=== PATIENT | female | born 1990 | race Two or more races ===

== ENCOUNTER 2017-12-27 14:12 | Emergency (ER) | payer OTHER ==
--- NOTE | 2017-12-27 15:53 | ER Document Report ---
ED Respiratory Problem - General Chief Complaint: Sore Throat Stated Complaint: SORE THROAT, COUGH Time Seen by Provider: 12/27/17 15:11 Mode of Arrival: Ambulatory Information source: Patient TRAVEL OUTSIDE OF THE [place] IN LAST 30 DAYS: No - HPI Patient complains to provider of: Cough Notes: Patient is here with her daughter and herself with similar symptoms. They both have had cough, nasal congestion, runny nose for about a month now. Mom states that she now feels like her voice is getting hoarse and she has green colored drainage from her nose. She is also having some mild sinus pain. She complains of cough. No chest pain or shortness of breath. No fever. Immunizations are up-to-date. No chronic medical conditions. No daily medications. No rash. No abdominal pain. No nausea, vomiting, diarrhea. No dysuria or hematuria. No difficulty breathing or swallowing. - Related Data Allergies/Adverse Reactions: No Known Allergies Allergy (Verified 02/14/16 01:54) Past Medical History - Social History Smoking Status: Never Smoker Chew tobacco use (# tins/day): No Frequency of alcohol use: None Drug Abuse: None Family History: Reviewed & Not Pertinent Patient has suicidal ideation: No Patient has homicidal ideation: No Renal/ Medical History: Denies: Hx Peritoneal Dialysis - Immunizations Immunizations up to date: Yes Hx Diphtheria, Pertussis, Tetanus Vaccination: Yes Review of Systems - Review of Systems -: Yes All other systems reviewed and negative Physical Exam - Vital signs Vitals: Temp Pulse Resp BP Pulse Ox 99.3 F 79 16 111/61 98 12/27/17 14:39 12/27/17 14:39 12/27/17 14:39 12/27/17 14:39 12/27/17 14:39 - Notes Notes: GENERAL: alert, cooperative, nontoxic, no distress. HEAD: normocephalic, atraumatic EYES: conjunctiva pink without discharge, no external redness or swelling. EARS: no external swelling, no external redness, no mastoid redness, swelling, tenderness. Ear canals are clear without swelling or drainage. TMs pearly garcia , no redness, no bulging, normal landmarks, no perforation. NOSE: atraumatic, no external swelling. Purulent rhinorrhea noted. Inflammation of the nasal turbinates bilaterally. MOUTH/THROAT: mucous membranes moist and pink, posterior pharynx without erythema, swelling, exudate. No trismus or drooling. Slight hoarseness to the voice. NECK: soft, supple, full range of motion, no meningismus. CHEST: no distress, lungs clear and equal throughout. No wheezing, rales, rhonchi. CARDIAC: regular rate and rhythm, no murmur, normal capillary refill, normal pulses. No peripheral edema noted. BACK: full range of motion, no CVA tenderness. EXTREMITIES: full range of motion of all extremities. No redness, no swelling. NEURO: alert and oriented A&O3, no focal deficits, full range of motion of all extremities. PYSCH: appropriate mood, affect. Patient is cooperative. SKIN: pink, warm, dry, no rash. Course - Re-evaluation Re-evalutation: 12/27/17 16:23 Patient is nontoxic-appearing with stable vitals. She is here with complaints of cough, nasal congestion, sore throat for about a month now. Things seem to be getting somewhat worse. She is now having green nasal drainage and her voice is somewhat hoarse. She denies any severe sore throat. No difficulty breathing. She has stable vitals, no hypoxia, has a benign exam with no distress. She is noted to have purulent rhinorrhea with inflamed nasal turbinates. Patient has been sick for about a month now and things seem to be worsening. Chest x-ray shows no acute abnormality. On exam she clinically has sinusitis. She has not been on antibiotics in the last [address] her on amoxicillin for sinusitis. She will be given a shot of Decadron prior to discharge. She should follow-up if she is not better in the next 5-7 days, sooner for worsening symptoms, high fever, difficulty breathing or swallowing, or for any further concerns. The patient's emergency department workup and current diagnosis were explained to the patient and or family. Follow-up instructions were provided. Medications if prescribed were discussed. Instructions for when to return to the emergency department including specific worrisome symptoms were discussed with the patient and/or family. - Vital Signs Vital signs: Temp Pulse Resp BP Pulse Ox 99.3 F 79 16 111/61 98 12/27/17 14:39 12/27/17 14:39 12/27/17 14:39 12/27/17 14:39 12/27/17 14:39 - Diagnostic Test Radiology reviewed: Image reviewed, Reports reviewed - Chest x-ray negative Discharge - Discharge Clinical Impression: Sinusitis Qualifiers: Sinusitis location: unspecified location Chronicity: acute Recurrence: non- recurrent Qualified Code(s): J01.90 - Acute sinusitis, unspecified Condition: Stable Disposition: HOME, SELF-CARE Instructions: Sinusitis ([facility]) Additional Instructions: Take medications as prescribed. Drink plenty of fluids. Tylenol or Motrin as needed for pain. Follow-up if not better in 5-7 days, sooner for worsening symptoms, high fever, difficulty breathing or swallowing, persistent vomiting, or for any further concerns. Prescriptions: Amoxicillin 875 mg PO BID #20 tablet Forms: Elevated Blood Pressure, Smoking Cessation Education
--- NOTE | 2017-12-27 16:03 | RADIOLOGY REPORT (SQ) ---
EXAM DESCRIPTION: CHEST 2 VIEWS COMPLETED DATE/TIME: 12/27/2017 3:56 pm REASON FOR STUDY: cough COMPARISON: None. EXAM PARAMETERS: NUMBER OF VIEWS: two views TECHNIQUE: Digital Frontal and Lateral radiographic views of the chest acquired. RADIATION DOSE: NA LIMITATIONS: none FINDINGS: LUNGS AND PLEURA: No opacities, masses or pneumothorax. No pleural effusion. MEDIASTINUM AND HILAR STRUCTURES: No masses or contour abnormalities. HEART AND VASCULAR STRUCTURES: Heart normal size. No evidence for failure. BONES: No acute findings. HARDWARE: None in the chest. OTHER: No other significant finding. IMPRESSION: NO ACUTE RADIOGRAPHIC FINDING IN THE CHEST. TECHNICAL DOCUMENTATION: JOB ID: [id number] [employer]- All Rights Reserved Reading location - IP/workstation name: [email or web address]
[2017-12-27] MEDS ORDERED: DEXAMETHASONE SOD PHOS INJ 10 MG/1 ML VIAL IM ONE (16:26)
[2017-12-27 17:09] VITALS: BP 110/64
== END 2017-12-27 17:08 | disposition home or self-care (01) ==
LOC: ER 14:12
DX: J01.90 Acute sinusitis, unspecified (principal); J02.9 Acute pharyngitis, unspecified; R05 Cough; R09.81 Nasal congestion
CPT/HCPCS: 99283; 96372; 71046; J1100

== ENCOUNTER 2018-06-18 20:27 | Emergency (ER) | payer OTHER ==
[2018-06-18] MEDS ORDERED: ACETAMINOPHEN 325 MG TABLET PO ONE (21:23)
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
--- NOTE | 2018-06-18 22:10 | RADIOLOGY REPORT (SQ) ---
3 VIEWS OF THE CERVICAL SPINE 2 VIEWS OF THE THORACIC SPINE HISTORY: Back pain. COMPARISON: None. FINDINGS: CERVICAL SPINE: Cervical spine is visualized from C1-C7; cervicothoracic junction is preserved. No prevertebral soft tissue swelling. Straightening of the normal cervical lordosis, which may be due to cervical collar, muscle spasm, or patient positioning. No static listhesis. Cervical vertebral body heights and disc spaces are preserved. Visualized lungs are clear. THORACIC SPINE: Alignment is maintained without static listhesis. Thoracic vertebral body heights are intact. Disc spaces are preserved. Visualized lungs are clear. IMPRESSION: No acute fracture or listhesis of the cervical or thoracic spine. However, if there is high clinical concern or point tenderness, consider cross sectional imaging.
--- NOTE | 2018-06-18 22:12 | RADIOLOGY REPORT (SQ) ---
SINGLE AP VIEW OF PELVIS HISTORY: Pelvic pain. COMPARISON: None. FINDINGS: No hip joint dislocations are seen. SI joints and pubic symphysis are without diastases. Iliopubic and ilioischial lines are preserved. Bowel gas obscures sacrum. IMPRESSION: No acute findings.
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
[2018-06-18 23:26] VITALS: BP 110/55
== END 2018-06-18 23:26 | disposition home or self-care (01) ==
LOC: ER 20:27
DX: S09.90XA Unspecified injury of head, initial encounter (principal); S40.022A Contusion of left upper arm, initial encounter; S00.81XA Abrasion of other part of head, initial encounter; S50.812A Abrasion of left forearm, initial encounter; M54.2 Cervicalgia; M54.9 Dorsalgia, unspecified; R07.9 Chest pain, unspecified; M25.551 Pain in right hip; M25.552 Pain in left hip; V89.2XXA Person injured in unspecified motor-vehicle accident, traffic, initial encounter
CPT/HCPCS: 99283; 72040; 71046; 72170; 72070; L0120